=== PATIENT | female | born 2000 | race Caucasian/White ===

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

== ENCOUNTER → 2023-05-19 | Outpatient (CLI) | payer BC ==
--- NOTE | 2023-05-20 07:52 | US ---
EXAMINATION TYPE: US transvaginal DATE OF EXAM: 05/19/2023 COMPARISON: NONE CLINICAL INDICATION: Female, 22 years old with history of N92.0 FREQUENT MENSTRUATION WITH REGULAR CY MURALI; irregular cycles TECHNIQUE: Transvaginal (TV). Date of LMP: 04/03/23 EXAM MEASUREMENTS: Uterus: 6.2 x 3.8 x 2.7 Endometrial Stripe: 0.4m Right Ovary: 3.1 x 2.9 x 1.6 Left Ovary: 4.0 x 2.4 x 2.3 1. Uterus: Anteverted wnl 2. Endometrium: wnl 3. Right Ovary: Multiple follicles seen 4. Left Ovary: Multiple follicles seen Spectral, color and waveform doppler imaging shows good arterial and venous flow within the ovaries ; there is no evidence for ovarian torsion. 5. Bilateral Adnexa: wnl 6. Posterior cul-de-sac: wnl IMPRESSION: 1. No evidence for acute process. 2. Multiple follicles in the bilateral ovaries which could represent polycystic ovarian morphology. Correlate clinically.
== END | disposition home or self-care (01) ==
LOC: RADUSWWP 16:49
PROVIDERS: ATTEND Family Medicine
DX: N92.0 Excessive and frequent menstruation with regular cycle (principal)
CPT/HCPCS: 76830